=== PATIENT | male | born 1960 | race Caucasian/White ===

== ENCOUNTER 2016-10-10 05:14 | Emergency (ER) | payer OTHER ==
[~2016-10-10] VITALS: Ht 170.2 cm; Wt 85.0 kg
[2016-10-10 05:18] VITALS: BP 120/79; PULSE 79; RESP 18; TEMP 98.3; O2SAT 98
[2016-10-10] MEDS ORDERED: ADVA250A INH (05:18)
[2016-10-10] MEDS ORDERED: VENTAER INH (05:18)
[2016-10-10] MEDS ORDERED: SODIUM CHLOR 0.9% 1000 ML INJ 1,000 ML IV SCH (05:23)
[2016-10-10] MEDS ORDERED: ONDANSETRON HCL 4 MG/2 ML VIAL IVP ONE (05:30)
[2016-10-10] MEDS ORDERED: ALUMINUM/MAGNESIUM/SIMETH 30 ML CUP PO ONE (05:30)
[2016-10-10] MEDS ORDERED: DICYCLOMINE HCL 20 MG/2 ML VIAL IM ONE (05:30)
[2016-10-10] MEDS ORDERED: LIDOCAINE VISCOUS 2% SOLN 15 ML UDC PO ONE (05:30)
[2016-10-10] MEDS ORDERED: SODIUM CHLORIDE 0.9% FLUSH 5 ML FLUSH IVF PRN (05:30)
[2016-10-10 06:13] LABS: AUTOMATED NEUTROPHIL # 3.5 TH/MM3 (1.8-7.7); BASOPHIL % 0.5 % (0.0-2.0); EOSINOPHIL # 0.2 TH/MM3 (0-0.4); EOSINOPHIL % 3.9 % (0.0-4.0); HEMATOCRIT 45.2 % (39.0-51.0); HEMO FLAGS DIFF FINAL; LYMPH % 15.9 % (9.0-44.0); LYMPHOCYTE # 0.8 TH/MM3 (1.0-4.8); MEAN CELL VOLUME 90.6 FL (80.0-100.0); MEAN CORPUSCULAR HEMOGLOBIN 32.1 PG (27.0-34.0); MEAN CORPUSCULAR HGB CONC 35.4 % (32.0-36.0); MONO % 10.8 % (0.0-8.0); NEUT % 68.9 % (16.0-70.0); PLATELET COUNT 215 TH/MM3 (150-450); RED BLOOD COUNT 4.99 MIL/MM3 (4.50-5.90); WHITE BLOOD COUNT 5.1 TH/MM3 (4.0-11.0)
[2016-10-10] MEDS ORDERED: BACT800T5 PO (06:23)
[2016-10-10] MEDS ORDERED: LOMO2.5T PO (06:23)
[2016-10-10 06:24] LABS: BICARBONATE 23.3 MEQ/L (21.0-32.0); POTASSIUM 3.8 MEQ/L (3.5-5.1)
--- NOTE | 2016-10-10 06:25 | PD ---
HPI Chief Complaint: Abdominal Pain Time Seen by Provider: 05:17 Travel History International Travel<30 days: No Contact w/Intl Traveler<30days: No Traveled to known affect area: No History of Present Illness HPI The patient's 56. He arrives from the [facility] where he had abdominal cramping and about 30 episodes of nonbloody diarrhea. He's had no nausea vomiting or fever. His last oral intake was meatloaf and mashed potatoes. He complains of some generalized stomach/abdominal cramps. He denies sick contacts. No similar episodes have occurred previously. PFSH Past Medical History Arthritis: Yes Anxiety: Yes COPD: Yes Respiratory: Yes (copd) Tetanus Vaccination: Unknown Influenza Vaccination: No Social History Alcohol Use: No (quit 3 weeks ago ) Tobacco Use: No Substance Use: No Allergies-Medications (Allergen,Severity, Reaction): Coded Allergies: No Known Allergies (Unverified , 10/10/16) Reported Meds & Prescriptions Reported Meds & Active Scripts Active Lomotil (Diphenoxylate-Atropine) 2.5-0.025 Mg Tab 1 Tab PO Q6H PRN Bactrim DS (Sulfamethoxazole-Trimethoprim) 800-160 Mg Tab 1 Tab PO BID Reported Ventolin Hfa 18 GM Inh (Albuterol Sulfate) 90 Mcg/Act Aer 2 Puff INH Q4H PRN Advair Diskus Inh (Fluticasone-Salmeterol Inh) 250-50 Mcg/Blist Aer 1 Puff INH BID Rinse mouth after use. Review of Systems Except as stated in HPI: all other systems reviewed are Neg General / Constitutional: No: Fever Gastrointestinal: Positive: Diarrhea, Abdominal Pain Physical Exam Narrative GENERAL: 56-year-old male pleasant no acute distress SKIN: Warm and dry. HEAD: Atraumatic. Normocephalic. EYES: Pupils equal and round. No scleral icterus. No injection or drainage. ENT: No nasal bleeding or discharge. Mucous membranes pink and moist. NECK: Trachea midline. No JVD. CARDIOVASCULAR: Regular rate and rhythm. No murmur appreciated. RESPIRATORY: No accessory muscle use. Clear to auscultation. Breath sounds equal bilaterally. GASTROINTESTINAL: Soft. No focal tenderness. MUSCULOSKELETAL: No obvious deformities. No clubbing. No cyanosis. No edema. NEUROLOGICAL: Awake and alert. No obvious cranial nerve deficits. Motor grossly within normal limits. Normal speech. PSYCHIATRIC: Appropriate mood and affect; insight and judgment normal. Data Data Last Documented VS Vital Signs Date Time Temp Pulse Resp B/P Pulse Ox O2 Delivery O2 Flow Rate FiO2 10/10/16 05:20 20 10/10/16 05:18 98.3 79 120/79 98 Vital signs present Orders Basic Metabolic Panel (Bmp) (10/10/16 05:23) Complete Blood Count With Diff (10/10/16 05:23) Iv Access Insert/Monitor (10/10/16 05:23) Ecg Monitoring (10/10/16 05:23) Oximetry (10/10/16 05:23) Ondansetron Inj (Zofran Inj) (10/10/16 05:30) Sodium Chlor 0.9% 1000 Ml Inj (Ns 1000 M (10/10/16 05:23) Sodium Chloride 0.9% Flush (Ns Flush) (10/10/16 05:30) Dicyclomine Inj (Bentyl Inj) (10/10/16 05:30) Al-Mag Hy-Si 40-40-4 Mg/Ml Liq (Mag-Al P (10/10/16 05:30) Lidocaine 2% Viscous (Xylocaine 2% Visco (10/10/16 05:30) Labs Laboratory Tests Test 10/10/16 05:50 White Blood Count 5.1 TH/MM3 Red Blood Count 4.99 MIL/MM3 Hemoglobin 16.0 GM/DL Hematocrit 45.2 % Mean Corpuscular Volume 90.6 FL Mean Corpuscular Hemoglobin 32.1 PG Mean Corpuscular Hemoglobin 35.4 % Concent Red Cell Distribution Width 13.0 % Platelet Count 215 TH/MM3 Mean Platelet Volume 8.7 FL Neutrophils (%) (Auto) 68.9 % Lymphocytes (%) (Auto) 15.9 % Monocytes (%) (Auto) 10.8 % Eosinophils (%) (Auto) 3.9 % Basophils (%) (Auto) 0.5 % Neutrophils # (Auto) 3.5 TH/MM3 Lymphocytes # (Auto) 0.8 TH/MM3 Monocytes # (Auto) 0.6 TH/MM3 Eosinophils # (Auto) 0.2 TH/MM3 Basophils # (Auto) 0.0 TH/MM3 CBC Comment DIFF FINAL Differential Comment Sodium Level 139 MEQ/L Potassium Level 3.8 MEQ/L Chloride Level 108 MEQ/L Carbon Dioxide Level 23.3 MEQ/L Anion Gap 8 MEQ/L Blood Urea Nitrogen 9 MG/DL Creatinine 0.76 MG/DL Estimat Glomerular Filtration 106 ML/MIN Rate Random Glucose 93 MG/DL Calcium Level 8.4 MG/DL [facility] Medical Decision Making Medical Screen Exam Complete: Yes Emergency Medical Condition: Yes Medical Record Reviewed: Yes Differential Diagnosis Constipation, Gastritis, Acute Cholecystitis, Biliary Colic, Pancreatitis, MALONE , Hepatitis, Bowel Obstruction, Cystitis, Mesenteric Ischemia, AAA, Appendicitis , Renal Stone/Hydronephrosis, GERD, perforated viscous Narrative Course CBC & BMP Diagram 10/10/16 05:50 PT has rested comfortably throughout ER stay. He is ready for discharge. We'll send home with Bactrim DS x 3 days and Lomotil. Return precautions discussed. Diagnosis Primary Impression: Diarrhea Qualified Code: R19.7 - Diarrhea, unspecified type Referrals: Primary Care Physician 2 days Additional Instructions: You have a choice when it comes to health care, and we are glad that you chose [email or web address]. Hopefully, we have met your expectations on today's visit. You are welcome to return to [email or web address] at any time, as we are committed to meeting the health care needs of our community. Med/Other Pt SpecificInfo: Prescription(s) given Scripts Diphenoxylate-Atropine (Lomotil)2.5-0.025 Mg Tab1 Tab PO Q6H PRN (DIARRHEA) #10 TAB Ref 0 Prov:Praveen Flores MD 10/10/16 Sulfamethoxazole-Trimethoprim (Bactrim DS)800-160 Mg Tab1 Tab PO BID #6 TAB Ref 0 Prov:Praveen Flores MD 10/10/16 Disposition: DISCHARGE HOME Condition: Stable Praveen Flores MD Oct 10, 2016 06:25
== END 2016-10-10 09:14 | disposition home or self-care (01) ==
LOC: NEPE 05:14
DX: R19.7 Diarrhea, unspecified (principal)
CPT/HCPCS: 80048; 85025; 96372; 96374; 99284; J0500; J2405; J7030